=== PATIENT | female | born 1950 | race Caucasian/White ===

== ENCOUNTER 2019-07-04 09:37 | Emergency (ER) | payer MEDICARE, SELFPAY ==
[2019-07-04 09:45] VITALS: BP 122/78; PULSE 82; RESP 18; TEMP 36.2; O2SAT 98
--- NOTE | 2019-07-04 09:47 | ED.URI ---
HPI - URI/Sore Throat General Chief Complaint: Upper Respiratory Infection Stated Complaint: sinus congest and left eye Time Seen by Provider: 07/04/19 09:47 Source: patient and RN notes reviewed History of Present Illness HPI Narrative: Patient is a 6-year-old female that presents the urgent care with complaints of left eye swelling, drainage, itchiness. Patient states that it started on Thursday after she had already had the cough, congestion and sinus drainage. Patient has been using Tylenol and Benadryl with mild symptom relief. Denies any known fever, shortness of breath, wheezing. No other acute complaints. No acute distress noted. Patient read the plan of care. Related Data Allergies Allergy/AdvReac Type Severity Reaction Status Date / Time No Known Allergies Allergy Unverified 07/27/18 09:12 Review of Systems Review of Systems: Narrative: CONSTITUTIONAL: Denies fever, chills, or sweats. EYES: Reports of left eye redness, clear to yellow discharge and matting, itchiness without visual changes. Denies any trauma to the eye. ENT: Reports of sinus congestion, postnasal drainage CARDIOVASCULAR: Denies chest pain, palpitations, or edema. RESPIRATORY: Reports of nonproductive cough without dyspnea GASTROINTESTINAL: Denies abdominal pain, nausea, vomiting, or diarrhea. GENITOURINARY: Denies dysuria or hematuria. SKIN: Denies rash or itching. MUSCULOSKELETAL: Denies back pain, joint pain, or myalgia. NEUROLOGIC: Denies headache, numbness, or weakness. All other systems reviewed are negative, except as documented in HPI. PMFSH Comments At the time of my signature, I reviewed and agree with the nursing past medical, surgical, social, and family history. There is no relevant family history pertinent to the patient complaint. Exam Narrative: Exam Narrative: GENERAL: This is a well-nourished, well-developed patient, in no apparent distress. HEAD: normocephalic, atraumatic. EYES: PERRL. Mild injection to left conjunctivea with clear to yellow drainage EARS: External ears normal, auditory canals clear and without drainage, TMs normal without perforation. Hearing grossly intact. NOSE: External nose normal with no obvious nasal discharge, nares without redness, no rhinorrhea. THROAT: Mucous membranes moist, posterior pharynx clear. Moderate postnasal clear drainage NECK: Neck supple, non-tender without lymphadenopathy CARDIOVASCULAR: Regular rate and rhythm without murmurs, gallops, or rubs. RESPIRATORY: Clear to auscultation. Breath sounds equal bilaterally. No wheezes, rales, or rhonchi. SKIN: warm, intact with no suspicious lesions or rash, good texture and turgor. NEURO: awake, alert, and oriented to person, place and time. There were no obvious focal neurologic abnormalities. EXTREMITIES: No clubbing, cyanosis, or edema. Course Vital Signs Vital signs: Vital Signs Temperature 97.1 F L 07/04/19 09:45 Pulse Rate 82 07/04/19 09:45 Respiratory Rate 18 07/04/19 09:45 Blood Pressure 122/78 07/04/19 09:45 Pulse Oximetry 98 07/04/19 09:45 Temperature 97.1 F L 07/04/19 09:45 Pulse Rate 82 07/04/19 09:45 Respiratory Rate 18 07/04/19 09:45 Blood Pressure 122/78 07/04/19 09:45 Pulse Oximetry 98 07/04/19 09:45 Reviewed MDM - URI/Sore Throat MDM Narrative Medical decision making narrative: Advised the patient to use eyedrops to the left eye as directed. Make sure to disinfect the applicator between each applications. May use warm wash rag to the left eye for comfort. Do not reuse the same wash rag continuously. Continue to take Singulair and use Flonase [id number] for sinus drainage and relief. If symptoms worsen or fail to improve and include anything such as wheezing, persistent shortness of breath, fever follow-up with PCP RACQU[facility]. Otherwise follow-up with primary care physician within 2 to 5 days or for worsening symptoms or failure to improve. Differential Diagnosis Differential diagnosis: Jammie
== END 2019-07-04 10:07 | disposition home or self-care (01) ==
PROVIDERS: Emergency Provider Nurse Practitioner Family; PCP Internal Medicine Geriatric Medicine
DX: H10.9 Unspecified conjunctivitis (principal); J06.9 Acute upper respiratory infection, unspecified; I10 Essential (primary) hypertension; K21.9 Gastro-esophageal reflux disease without esophagitis; E03.9 Hypothyroidism, unspecified
CPT/HCPCS: 99213; G0463